=== PATIENT | male | born 1955 | race Caucasian/White ===

== ENCOUNTER → 2017-01-22 | Outpatient (CLI) | payer SELFPAY ==
--- NOTE | 2017-01-23 09:37 | MRI ---
EXAM DESCRIPTION: Lumbar Spine w/o Contrast CLINICAL HISTORY: RADICULOPATHY. Low back pain radiating into the left leg. COMPARISON: None Available. TECHNIQUE: MRI of the lumbar spine is performed according to our usual protocol with axial and sagittal multi sequence imaging. FINDINGS: The designated L5-S1 disc space is on axial T2 image 3. Transitional lumbosacral anatomy is present. For the purposes of this report, the L5 vertebral body is considered transitional and is partially sacralized. There is good alignment of the lumbar spine. Benign hemangioma in the anterior aspect of L5. There is no acute fracture or destructive osseous lesion. 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 1 cm cyst in the left kidney. L1-2: Disc desiccation with mild disc narrowing. Mild facet hypertrophy with ligamentum flavum thickening. 2 mm posterior disc bulge with no spinal canal or neural foraminal stenosis. L2-3: Disc desiccation with mild disc narrowing. Moderate facet hypertrophy with ligamentum flavum thickening. 3 mm posterior disc bulge with multifactorial moderate spinal canal stenosis. Residual AP diameter of the thecal sac is 7.2 mm. Mild bilateral neural foraminal stenosis. L3-4: Disc desiccation with mild disc narrowing. Severe bilateral facet hypertrophy. 4 mm posterior disc osteophyte complex with multifactorial moderate to severe spinal canal stenosis. Residual AP diameter of the thecal sac is 6.8 mm. There is also moderate to severe left greater than right neural foraminal stenosis. Material contacts both exiting L3 nerve roots. L4-5: Disc desiccation with mild disc narrowing. Severe bilateral facet hypertrophy. 2 mm posterior disc bulge with multifactorial mild spinal canal stenosis and mild bilateral neural foraminal stenosis. L5-S1: Transitional lumbosacral anatomy. Severe facet hypertrophy. Mild osteophytic ridging of the endplates with mild bilateral neural foraminal stenosis. The spinal canal is patent. IMPRESSION: 1. Transitional lumbosacral anatomy as described above. For the purposes of this report, the L5 vertebral body is considered transitional and partially sacralized. The designated L5-S1 disc space is on axial T2 image 3. 2. 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 3. A focal disc degeneration and facet degenerative changes. The findings are most pronounced at L3-L4 where there is multifactorial moderate to severe spinal canal stenosis and moderate to severe left greater than right neural foraminal stenosis. Material contacts both exiting L3 nerve roots. 4. Other levels as detailed above. Electronically signed by: Jose Davison MD 01/23/2017 9:36 AM CDT
== END | disposition home or self-care (01) ==
LOC: MRI 13:24
PROVIDERS: ATTEND Family Medicine
DX: M47.896 Other spondylosis, lumbar region (principal)

== ENCOUNTER → 2017-05-01 | Outpatient (CLI) | payer BC | END | disposition home or self-care (01) | LOC: GMAL 10:23 | PROVIDERS: ATTEND Family Medicine | DX: Z00.00 Encounter for general adult medical examination without abnormal findings (principal) ==

== ENCOUNTER → 2017-06-11 | Outpatient (CLI) | payer BC | END | disposition home or self-care (01) | LOC: GMAL 15:01 | PROVIDERS: ATTEND Family Medicine | DX: L89.892 Pressure ulcer of other site, stage 2 (principal) ==

== ENCOUNTER → 2017-07-03 | Outpatient (CLI) | payer BC | END | disposition home or self-care (01) | LOC: GMAL 09:58 | PROVIDERS: ATTEND Family Medicine | DX: Z01.818 Encounter for other preprocedural examination (principal); R30.0 Dysuria ==

== ENCOUNTER → 2017-09-23 | Outpatient (CLI) | payer BC | END | disposition home or self-care (01) | LOC: GMA 15:24 | PROVIDERS: ATTEND Physician Assistant | DX: N30.00 Acute cystitis without hematuria (principal) ==

== ENCOUNTER → 2019-03-09 | Outpatient (CLI) | payer MEDICARE | LOC: GMAL 10:27 | PROVIDERS: ATTEND Family Medicine | DX: D51.3 Other dietary vitamin B12 deficiency anemia (principal); I10 Essential (primary) hypertension; E11.9 Type 2 diabetes mellitus without complications; R53.83 Other fatigue; E78.49 Other hyperlipidemia; E55.9 Vitamin D deficiency, unspecified; I48.2 Chronic atrial fibrillation; Z12.5 Encounter for screening for malignant neoplasm of prostate | CPT/HCPCS: 82306; 82607; 84443; G0103 ==

== ENCOUNTER → 2019-10-11 | Outpatient (CLI) | payer MEDICARE | LOC: GMAL 10:41 | PROVIDERS: ATTEND Family Medicine | DX: R97.20 Elevated prostate specific antigen [PSA] (principal); E78.49 Other hyperlipidemia; I10 Essential (primary) hypertension; E11.9 Type 2 diabetes mellitus without complications ==

== ENCOUNTER → 2019-11-14 | Outpatient (CLI) | payer MEDICARE | LOC: SL 19:15 | PROVIDERS: ATTEND Family Medicine | DX: G47.33 Obstructive sleep apnea (adult) (pediatric) (principal); G47.10 Hypersomnia, unspecified; G47.00 Insomnia, unspecified; G47.9 Sleep disorder, unspecified; E11.9 Type 2 diabetes mellitus without complications; I10 Essential (primary) hypertension; R06.83 Snoring ==

== ENCOUNTER → 2020-11-15 | Outpatient (CLI) | payer MEDICARE | LOC: GMAL 10:25 | PROVIDERS: ATTEND Family Medicine | DX: D64.9 Anemia, unspecified (principal); R53.83 Other fatigue ==